=== PATIENT | male | born 1990 | race Caucasian/White ===

== ENCOUNTER 2017-07-13 09:59 | Outpatient (CLI) | payer OTHER | END 2017-07-13 10:00 | disposition home or self-care (01) | LOC: SC 09:59 | PROVIDERS: ATTEND Internal Medicine Pulmonary Disease | DX: G47.30 Sleep apnea, unspecified (principal); G47.10 Hypersomnia, unspecified; R06.83 Snoring; G47.8 Other sleep disorders | CPT/HCPCS: 99203; 99212 ==

== ENCOUNTER 2017-09-15 19:12 | Outpatient (CLI) | payer OTHER | END 2017-09-15 19:13 | disposition home or self-care (01) | LOC: SC 19:12 | PROVIDERS: ATTEND Internal Medicine Pulmonary Disease | DX: G47.33 Obstructive sleep apnea (adult) (pediatric) (principal) | CPT/HCPCS: 95810 ==

== ENCOUNTER 2017-10-21 09:09 | Outpatient (CLI) | payer OTHER | END 2017-10-21 09:10 | disposition home or self-care (01) | LOC: SC 09:09 | PROVIDERS: ATTEND Nurse Practitioner Family | DX: G47.33 Obstructive sleep apnea (adult) (pediatric) (principal) | CPT/HCPCS: 99212; 99214 ==

== ENCOUNTER 2018-07-11 21:14 | Emergency (ER) | payer OTHER ==
[2018-07-11 21:35] LABS: BILIRUBIN,URINE NEGATIVE (NEGATIVE); GLUCOSE, URINE (UA) NEGATIVE (NEGATIVE); KETONES,URINE (UA) NEGATIVE (NEGATIVE); LEUKOCYTE ESTERASE, URINE NEGATIVE (NEGATIVE); NITRITE,URINE NEGATIVE (NEGATIVE); OCCULT BLOOD,URINE NEGATIVE (NEGATIVE); PH,URINE 6.5 PH (5.0-7.5); PROTEIN,URINE NEGATIVE (NEGATIVE); UROBILINOGEN,URINE 1 (NORMAL) E.U./dL (NORMAL)
[2018-07-11 21:37] LABS: CLARITY,URINE CLEAR (CLEAR)
--- NOTE | 2018-07-11 22:03 | ED Physician Documentation ---
PD HPI MALE - Stated complaint Stated Complaint: MALE - Chief complaint Chief Complaint: Abd Pain - History obtained from History obtained from: Patient - History of Present Illness Timing - onset: Yesterday Timing - details: Gradual onset, Still present Associated symptoms: Testiclar pain PD HPI MALE CONTRIB FACTORS: Sexually active (monogamous.) Similar symptoms before: Has not had sx before - Additional information Additional information: The patient is a 28-year-old male who presents with left testicular pain that started yesterday. He describes it as an aching pain. Today he noticed swelling of the left testicle. The pain is worse with standing or walking, or with lifting. It is better when lying supine. He denies history of similar symptoms in the past. He denies fever, dysuria, nausea or vomiting, or penile discharge. He is , and monogamous. Review of Systems Constitutional: denies: Fever Nose: denies: Congestion Throat: denies: Sore throat Cardiac: denies: Chest pain / pressure Respiratory: denies: Dyspnea, Cough GI: denies: Abdominal Pain, Nausea, Vomiting : reports: Testicular pain. denies: Dysuria, Discharge Skin: denies: Rash Musculoskeletal: denies: Back pain Neurologic: denies: Headache PD PAST MEDICAL HISTORY - Past Medical History Past Medical History: No Endocrine/Autoimmune: None - Past Surgical History Past Surgical History: No - Present Medications Home Medications: Ambulatory Orders Medication Instructions Recorded Confirmed Levofloxacin [Levaquin] 500 mg PO DAILY #7 tablet 07/12/18 - Allergies Allergies/Adverse Reactions: Allergies Allergy/AdvReac Type Severity Reaction Status Date / Time No Known Drug Allergies Allergy Verified 07/11/18 21:21 - Social History Does the pt smoke?: No Smoking Status: Former smoker Does the pt drink ETOH?: Yes Does the pt have substance abuse?: No - Immunizations Immunizations are current?: Yes - POLST Patient has POLST: No PD ED PE NORMAL - Vitals Vital signs reviewed: Yes (Initially hypertensive.) - General General: Alert and oriented X 3, Well developed/nourished - HEENT HEENT: Atraumatic, Moist mucous membranes - Cardiac Cardiac: RRR - Respiratory Respiratory: No respiratory distress - Abdomen Abdomen: Soft, Non tender, No organomegaly - Male Male : Other (There is tenderness to palpation of the left testicle, particularly over the epididymis. There is no appreciable scrotal swelling, and no hernia defect palpated. Penile shaft is unremarkable.) - Back Back: No CVA TTP - Derm Derm: No rash - Extremities Extremities: No edema - Neuro Neuro: Alert and oriented X 3, Normal speech Results - Vitals Vitals: Vital Signs - 24 hr 07/11/18 07/12/18 21:18 00:34 Temperature 37.2 C Heart Rate 114 H 72 Respiratory 16 16 Rate Blood Pressure 149/94 H 118/59 L O2 Saturation 100 98 Oxygen O2 Source Room air - Labs Labs: Laboratory Tests 07/11/18 21:31 Urine Color YELLOW Urine Clarity CLEAR Urine pH 6.5 Ur Specific [place] 1.025 Urine Protein NEGATIVE Urine Glucose (UA) NEGATIVE Urine Ketones NEGATIVE Urine Occult Blood NEGATIVE Urine Nitrite NEGATIVE Urine Bilirubin NEGATIVE Urine Urobilinogen 1 (NORMAL) Ur Leukocyte Esterase NEGATIVE Ur Microscopic Review NOT INDICATED Urine Culture Comments NOT INDICATED - Rads (name of study) Testicular U/S Radiology: Prelim report reviewed, EMP read contemporaneously, See rad report (1) Heterogeneous hypervascular left testis possibly representing orchitis. Clinical and sonographic follow-up recommended to show resolution and rule out malignancy. 2) Small left hydrocele and small left varicocele. 3) Some tiny echogenic foci are seen in both testes possibly representing microliths.) PD MEDICAL DECISION MAKING - ED course Complexity details: reviewed results, re-evaluated patient, considered differential, d/w patient ED course: The patient's presentation is most consistent with left epididymal orchitis. Ultrasound of the left testicle and scrotum reveals no evidence of testicular torsion. Treatment in the emergency department included administration of levofloxacin 500 mg orally and ibuprofen 800 mg orally. He is being discharged with prescription for levofloxacin. I discussed with him the expected course of illness, antibiotic treatment and outpatient follow-up, as well as potentially worrisome signs or symptoms that should prompt reevaluation in the emergency department. Departure - Departure Disposition: 01 Home, Self Care Clinical Impression: Orchitis and epididymitis Condition: Stable Instructions: ED Orchitis Follow-Up: SHRUTHI Lund [Provider Group] Prescriptions: Levofloxacin [Levaquin] 500 mg PO DAILY #7 tablet Comments: Take Levaquin daily as prescribed. You can use ibuprofen, up to 800 mg 3 times daily for its anti-inflammatory effect. Follow-up with your primary physician within 1 week. Call to schedule appointment. Return to the emergency department if you develop increasing testicular or scrotal swelling or pain, or otherwise worsening symptoms. Forms: Activity restrictions Discharge Date/Time: 07/12/18 00:35
[2018-07-11] MEDS ORDERED: IBUPROFEN 800 MG TABLET PO STA (23:08)
--- NOTE | 2018-07-11 23:27 | Ultrasound Report ---
Reason: left testicular pain and swelling. Procedure Date: 07/11/2018 Accession Number: [id number] / [id number] Procedure: US - Testicle w/Doppler Limited CPT Code: FULL RESULT: EXAM: SCROTAL ULTRASOUND EXAM DATE: 07/11/2018 11:12 PM. CLINICAL HISTORY: Left testicular pain and swelling. COMPARISON: None. TECHNIQUE: Real-time scanning was performed with static images obtained. Color-flow images were utilized. FINDINGS: Right: Testis: 3.7 x 2.4 x 1.8 cm. Several small echogenic foci possibly representing microliths. Echo texture is otherwise normal. No mass or abnormal blood flow seen. Epididymis: 0.9 x 0.6 x 1.0 cm. Small cysts measuring up to 2 x 2 x 1 mm. Otherwise unremarkable. Hydrocele: None. Varicocele: None. Left: Testis: 3.7 x 2.7 x 2.0 cm. Heterogeneous echotexture with increased vascularity. A few tiny echogenic foci are seen possibly representing microliths. Epididymis: 0.9 x 0.7 x 0.9 cm. Normal size and echotexture. No mass or abnormal blood flow. Hydrocele: Small amount. Varicocele: Small. IMPRESSION: 1. Heterogeneous hypervascular left testis possibly representing orchitis. Clinical and sonographic follow-up recommended to show resolution and rule out malignancy. 2. Small left hydrocele and small left varicocele. 3. Some tiny echogenic foci are seen in both testes possibly representing microliths. RADIA
[2018-07-12] MEDS ORDERED: levoFLOXacin 250 MG TABLET PO STA (00:10)
[2018-07-12 00:35] VITALS: BP 118/59
== END 2018-07-12 00:35 | disposition home or self-care (01) ==
LOC: ED 21:14
DX: N45.2 Orchitis (principal); N45.1 Epididymitis; Z87.891 Personal history of nicotine dependence
CPT/HCPCS: 76870; 81003; 93976; 99283; A9270; 81001; 87086

== ENCOUNTER 2018-07-21 08:45 | Outpatient (CLI) | payer OTHER | END 2018-07-21 08:46 | disposition home or self-care (01) | LOC: SC 08:45 | PROVIDERS: ATTEND Nurse Practitioner Family | DX: G47.33 Obstructive sleep apnea (adult) (pediatric) (principal) | CPT/HCPCS: 99212; 99214 ==

== ENCOUNTER 2018-08-12 14:26 | Outpatient (CLI) | payer OTHER | END 2018-08-12 14:27 | disposition home or self-care (01) | LOC: SC 14:26 | PROVIDERS: ATTEND Nurse Practitioner Family | DX: G47.33 Obstructive sleep apnea (adult) (pediatric) (principal) | CPT/HCPCS: 99212; 99214 ==

== ENCOUNTER 2018-12-20 13:05 | Emergency (ER) | payer OTHER ==
[2018-12-20 14:11] LABS: BASOPHILS % (AUTO) 0.2 %; EOSINOPHILS % (AUTO) 0.2 %; LYMPHOCYTES # (AUTO) 0.5 10^3/uL (1.5-3.5); LYMPHOCYTES % (AUTO) 3.9 %; MEAN CORPUSCULAR HEMOGLOBIN 30.9 pg (27.0-31.0); MEAN CORPUSCULAR HGB CONC 34.7 g/dL (32.0-36.0); MEAN PLATELET VOLUME 9.1 fL (7.4-11.4); MONOCYTES # (AUTO) 0.6 10^3/uL (0.0-1.0); MONOCYTES % (AUTO) 4.8 %; NEUTROPHILS # (AUTO) 10.8 10^3/uL (1.5-6.6); NEUTROPHILS % (AUTO) 90.9 %; PLT - PLATELET COUNT 171 10^3/uL (130-450); RED BLOOD COUNT 5.51 10^6/uL (4.70-6.10); RED CELL DISTRIBUTION WIDTH 12.8 % (12.0-15.0); WHITE BLOOD COUNT 11.9 x10^3/uL (4.8-10.8)
[2018-12-20] MEDS ORDERED: HYDROmorphone 1 MG/ML CARPUJECT IVP STA ×2 (14:16→16:18)
[2018-12-20] MEDS ORDERED: SODIUM CHLORIDE 0.9% 1,000 ML IV ONE (14:16)
[2018-12-20] MEDS ORDERED: ONDANSETRON 4 MG/2 ML VIAL IVP STA (14:16)
--- NOTE | 2018-12-20 14:16 | ED Physician Documentation ---
PD HPI ABD PAIN - Stated complaint Stated Complaint: ABD PX/VOMITING - Chief complaint Chief Complaint: Abd Pain - History obtained from History obtained from: Patient - History of Present Illness Timing - onset: Today (He was not feeling great last night but nothing specific. This morning he has had vomiting and diarrhea and severe diffuse abdominal pain. No H/O abd Surgeries. He also feels sore all over.) Review of Systems Ten Systems: 10 systems reviewed and negative Constitutional: reports: Myalgias. denies: Fever, Chills Nose: denies: Rhinorrhea / runny nose, Congestion Cardiac: denies: Chest pain / pressure, Palpitations Respiratory: denies: Dyspnea, Cough PD PAST MEDICAL HISTORY - Past Medical History Endocrine/Autoimmune: None - Past Surgical History Past Surgical History: No - Present Medications Home Medications: Ambulatory Orders Medication Instructions Recorded Confirmed Hydrocodone/Acetaminophen 1 - 2 each PO Q6H PRN #10 tablet 12/20/18 [Hydrocodon-Acetaminophen 5-325] Ondansetron Odt [Zofran] 4 mg TL Q6H PRN #10 tablet 12/20/18 - Allergies Allergies/Adverse Reactions: Allergies Allergy/AdvReac Type Severity Reaction Status Date / Time No Known Drug Allergies Allergy Verified 12/20/18 13:27 - Social History Does the pt smoke?: No Smoking Status: Former smoker Does the pt drink ETOH?: Yes Does the pt have substance abuse?: No - Immunizations Immunizations are current?: Yes - POLST Patient has POLST: No PD ED PE NORMAL - Vitals Vital signs reviewed: Yes (tachycardic) - General General: No acute distress, Well developed/nourished - HEENT HEENT: PERRL, EOMI, Pharynx benign - Neck Neck: Supple, no meningeal sign, No bony TTP - Cardiac Cardiac: RRR, No murmur - Respiratory Respiratory: No respiratory distress, Clear bilaterally - Abdomen Abdomen: Other (Diminished bowel sounds, not absent. No abdominal tenderness, but mild rebound tenderness. He actually says palpation feels good and relieves the pain.) - Back Back: No CVA TTP, No spinal TTP - Derm Derm: Normal color, Warm and dry - Extremities Extremities: No edema, No calf tenderness / cord - Neuro Neuro: Alert and oriented X 3, Normal speech Results - Vitals Vitals: Vital Signs - 24 hr 12/20/18 12/20/18 12/20/18 13:26 14:25 15:15 Temperature 37.7 C H 38 C H 37.4 C Heart Rate 112 H 85 Respiratory 22 18 Rate Blood Pressure 125/88 H 128/88 H O2 Saturation 96 99 12/20/18 16:14 Temperature Heart Rate 101 H Respiratory 18 Rate Blood Pressure 101/79 O2 Saturation 98 Oxygen O2 Source Room air - Labs Labs: Laboratory Tests 12/20/18 12/20/18 12/20/18 14:03 14:03 15:15 WBC 11.9 H RBC 5.51 Hgb 17.0 Hct 49.1 MCV 89.0 MCH 30.9 MCHC 34.7 RDW 12.8 Plt Count 171 MPV 9.1 Neut # (Auto) 10.8 H Lymph # (Auto) 0.5 L [place] # (Auto) 0.6 Eos # (Auto) 0.0 Baso # (Auto) 0.0 Absolute Nucleated RBC 0.01 Nucleated RBC % 0.1 Sodium 138 Potassium 3.8 Chloride 104 Carbon Dioxide 24 Anion Gap 10.0 BUN 20 Creatinine 1.2 Estimated GFR (MDRD) 72 L Glucose 103 H Calcium 9.6 Total Bilirubin 1.3 H AST 30 ALT 45 Alkaline Phosphatase 36 L Total Protein 8.5 H Albumin 4.9 Globulin 3.6 Albumin/Globulin Ratio 1.4 Lipase 24 Urine Color YELLOW Urine Clarity CLEAR Urine pH 7.5 Ur Specific [place] 1.015 Urine Protein TRACE Urine Glucose (UA) NEGATIVE Urine Ketones TRACE Urine Occult Blood NEGATIVE Urine Nitrite NEGATIVE Urine Bilirubin NEGATIVE Urine Urobilinogen 0.2 (NORMAL) Ur Leukocyte Esterase NEGATIVE Ur Microscopic Review NOT INDICATED Urine Culture Comments NOT INDICATED PD MEDICAL DECISION MAKING - ED course ED course: 28-year-old gentleman with a syndrome most consistent with gastroenteritis but the pain seems pretty prominent and given the elevated white count a CT was done to rule out appendicitis which was negative for same. He was feeling much better after medications and passed an oral challenge here. Departure - Departure Disposition: 01 Home, Self Care Clinical Impression: Vomiting, Abdominal pain, Diarrhea Condition: Good Record reviewed to determine appropriate education?: Yes Instructions: ED Nausea Vomiting Prescriptions: Hydrocodone/Acetaminophen [Hydrocodon-Acetaminophen 5-325] 1 - 2 each PO Q6H PRN #10 tablet PRN Reason: pain Ondansetron Odt [Zofran] 4 mg TL Q6H PRN #10 tablet PRN Reason: Nausea / Vomiting Comments: Generally illnesses like this are very short-lived. If you are still sick in the morning please return for reevaluation, anytime if worse or if new symptoms develop. Forms: Activity restrictions Discharge Date/Time: 12/20/18 16:33
[2018-12-20 14:26] LABS: ALBUMIN 4.9 g/dL (3.2-5.5); ALBUMIN/GLOBULIN RATIO 1.4 (1.0-2.2); BILIRUBIN,TOTAL 1.3 mg/dL (0.2-1.0); CALCIUM 9.6 mg/dL (8.5-10.3); CREATININE 1.2 mg/dL (0.6-1.2); TOTAL PROTEIN 8.5 g/dL (6.7-8.2)
[2018-12-20] MEDS ORDERED: IOVERSOL 320 100 ML VIAL IVP ONE ×2 (15:13→16:12)
[2018-12-20 15:26] LABS: BILIRUBIN,URINE NEGATIVE (NEGATIVE); GLUCOSE, URINE (UA) NEGATIVE (NEGATIVE); KETONES,URINE (UA) TRACE mg/dL (NEGATIVE); LEUKOCYTE ESTERASE, URINE NEGATIVE (NEGATIVE); NITRITE,URINE NEGATIVE (NEGATIVE); OCCULT BLOOD,URINE NEGATIVE (NEGATIVE); PH,URINE 7.5 PH (5.0-7.5); PROTEIN,URINE TRACE mg/dL (NEGATIVE); UROBILINOGEN,URINE 0.2 (NORMAL) E.U./dL (NORMAL)
[2018-12-20 15:28] LABS: CLARITY,URINE CLEAR (CLEAR)
--- NOTE | 2018-12-20 15:53 | CT Report ---
Reason: IV only, abd pain Procedure Date: 12/20/2018 Accession Number: [id number] / [id number] Procedure: CT - Abdomen/Pelvis W CPT Code: FULL RESULT: EXAM: CT ABDOMEN AND PELVIS EXAM DATE: 12/20/2018 03:40 PM. CLINICAL HISTORY: Abdominal pain. COMPARISONS: None. TECHNIQUE: Routine helical CT imaging was performed through the abdomen and pelvis. IV contrast: OPTI 320 100mL. Enteric contrast: No. Reconstructions: Coronal and sagittal. In accordance with CT protocol optimization, one or more of the following dose reduction techniques were utilized for this exam: automated exposure control, adjustment of mA and/or KV based on patient size, or use of iterative reconstructive technique. FINDINGS: Lung Bases: Unremarkable. Liver: Normal. No masses. Gallbladder/Bile Ducts: Unremarkable. Spleen: Normal. Pancreas: Normal. Adrenal Glands: Normal. Kidneys: Normal. No masses or hydronephrosis. Peritoneal Cavity/Bowel: Colon is fluid-filled compatible with diarrhea. No free fluid, free air or adenopathy. No masses or acute inflammatory process. The appendix is well visualized and normal. Pelvic Organs: Normal. The bladder and visualized pelvic organs are within normal limits. Vasculature: No aneurysms or other significant abnormality. Bones: No significant abnormality. Other: None. IMPRESSION: Fluid-filled colon, suspect diarrhea. RADIA
[2018-12-20 16:15] VITALS: BP 101/79
[2018-12-20] MEDS ORDERED: KETOROLAC 30 MG/ML VIAL IVP STA (16:18)
== END 2018-12-20 16:33 | disposition home or self-care (01) ==
LOC: ED 13:05
DX: R11.10 Vomiting, unspecified (principal); R10.9 Unspecified abdominal pain; R19.7 Diarrhea, unspecified; Z87.891 Personal history of nicotine dependence
CPT/HCPCS: 36415; 74177; 80053; 81003; 83690; 85025; 96361; 96374; 96376; 99283; J1170; Q9967; 81001; 87086

== ENCOUNTER 2021-03-20 17:56 | Emergency (ER) | payer OTHER ==
[2021-03-20 18:09] VITALS: BP 126/74
--- NOTE | 2021-03-20 18:43 | ED Physician Documentation ---
PD HPI LOWER EXT INJURY - Stated complaint Stated Complaint: RIGHT LEG INJURY - Chief complaint Chief Complaint: Trauma Ext - History obtained from History obtained from: Patient - History of Present Illness PD HPI LOW EXT INJURY LOCATION: Right, Thigh Type of injury: No: Fall (he was playing baseball and started a run from third base to home and with the jumpoff of the run, he felt a pop and pain right posterior thigh, and pain with walking. 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) Timing - details: Abrupt onset, Still present Worsened by: Moving Associated symptoms: No: Weakness, Numbness Review of Systems Skin: denies: Abrasion (s), Laceration (s) Neurologic: denies: Focal weakness, Numbness PD PAST MEDICAL HISTORY - Past Medical History Cardiovascular: None Respiratory: None Neuro: None Endocrine/Autoimmune: None GI: None : None HEENT: None Psych: None Musculoskeletal: None Derm: None - Past Surgical History Past Surgical History: No - Present Medications Home Medications: Ambulatory Orders Medication Instructions Recorded Confirmed Ibuprofen [Motrin] 600 mg PO TID PRN #25 tab 03/20/21 hydrOXYzine HCL [Hydroxyzine HCl] 25 mg PO QID PRN 03/20/21 03/20/21 tiZANidine [Zanaflex] 4 mg PO Q8H PRN #25 tablet 03/20/21 - Allergies Allergies/Adverse Reactions: Allergies Allergy/AdvReac Type Severity Reaction Status Date / Time No Known Drug Allergies Allergy Verified 03/20/21 18:05 - Social History Does the pt smoke?: No Smoking Status: Former smoker Does the pt drink ETOH?: Yes Does the pt have substance abuse?: No - Immunizations Immunizations are current?: Yes - POLST Patient has POLST: No PD ED PE NORMAL - Vitals Vital signs reviewed: Yes - General General: Alert and oriented X 3, Well developed/nourished, Other (seems in pain with movement of the knee, flexion causing spasm of posterior thigh.) - Derm Derm: Normal color, Warm and dry - Extremities Extremities: Other (right knee without tenderness. lateral hamstring tendon feels soft but is still intact with passive leg extension. mid hamstring with tenderness markedly.) - Neuro Neuro: Alert and oriented X 3, No motor deficit, Normal speech Results - Vitals Vitals: Vital Signs - 24 hr 03/20/21 18:06 Temperature 37.3 C Heart Rate 88 Respiratory 16 Rate Blood Pressure 126/74 O2 Saturation 98 Oxygen O2 Source Room air - Rads (name of study) right hip Radiology: Prelim report reviewed (no fractures), See rad report PD MEDICAL DECISION MAKING - ED course Complexity details: considered differential (clinically feels like mid hamgstring muscle tear and not distal tendon. ), d/w patient Departure - Departure Disposition: 01 Home, Self Care Clinical Impression: Tear of right hamstring Condition: Stable Record reviewed to determine appropriate education?: Yes Instructions: ED Strain Muscle Ext Follow-Up: SHRUTHI Lund [Provider Group] Prescriptions: Ibuprofen [Motrin] 600 mg PO TID PRN #25 tab PRN Reason: Pain tiZANidine [Zanaflex] 4 mg PO Q8H PRN #25 tablet PRN Reason: Spasms Comments: YourThis does seem like a tear of the lateral hamstring but seems more in the mid muscle belly and not the tendon attachment itself. This would tend to heal better with conservative treatment of a knee brace and crutches and limited use. Ibuprofen 600 mg 3 times a day with food. To that add Tylenol every 4 hours if needed for pain. Tizanidine muscle relaxant for spasms. Heat and stretching for the area to reduce spasming as well. Follow-up with your primary care early next week for recheck, call for an a ppointment. Use the knee brace in a slightly flexed position to reduce tension on the muscle and tendon. Crutches for nonweightbearing. Continue in this fashion until follow-up. Discharge Date/Time: 03/20/21 20:10
[2021-03-20] MEDS ORDERED: HYDROcod/ACETAM 5/325 MG TABLET PO STA (18:54)
[2021-03-20] MEDS ORDERED: IBUPROFEN 600 MG TABLET PO STA (18:54)
[2021-03-20] MEDS ORDERED: methocarbamoL 500 MG TABLET PO STA (18:54)
--- NOTE | 2021-03-20 19:06 | XRAY Report ---
PROCEDURE: Hip w/Pelvis 2-3V RT INDICATIONS: hamstring injury TECHNIQUE: AP pelvis with lateral view(s) of the right hip(s). COMPARISON: None. FINDINGS: Bones: No fractures or dislocations. Specifically, no visible avulsion fracture at the hamstring or igin site. Pelvic ring appears intact. No suspicious bony lesions. Benign-appearing bone island lef t posterior ilium. Soft tissues: The visualized bowel gas pattern is normal. No suspicious soft tissue calcifications. IMPRESSION: No visible fractures. Reviewed by: Laila Wells MD on 03/20/2021 7:04 PM PDT Approved by: Laila Wells MD on 03/20/2021 7:04 PM PDT Station ID: [id number]
== END 2021-03-20 20:10 | disposition home or self-care (01) ==
LOC: ED 17:56
DX: S76.811A Strain of other specified muscles, fascia and tendons at thigh level, right thigh, initial encounter (principal); X50.9XXA Other and unspecified overexertion or strenuous movements or postures, initial encounter; Y93.64 Activity, baseball; Y92.320 Baseball field as the place of occurrence of the external cause; Z87.891 Personal history of nicotine dependence
CPT/HCPCS: 73502; 99282; 99283; A9270

== ENCOUNTER 2021-07-27 17:31 | Outpatient (CLI) | payer OTHER | END 2021-07-27 17:32 | disposition critical access hospital (66) | LOC: EMS 17:31 | DX: F41.9 Anxiety disorder, unspecified (principal) | CPT/HCPCS: A0425; A0429 ==

== ENCOUNTER 2021-07-27 17:34 | Emergency (ER) | payer OTHER ==
[2021-07-27] MEDS ORDERED: LORazepam 2 MG/ML VIAL IVP STA (17:39)
--- NOTE | 2021-07-27 17:40 | ED Physician Documentation ---
PD HPI DYSPNEA - Stated complaint Stated Complaint: ANXIETY ATTACK - History obtained from History obtained from: Patient, EMS - Additional information Additional information: 31-year-old gentleman with history of anxiety was in his usual state of health when he developed an anxiety attack. Feels like his throat is closing and is having an awful time breathing. No associated rash. He feels tingly all over especially arms and legs and around the mouth. No unilateral symptoms. He took a hydroxyzine at home prior to arrival which was not helpful. Review of Systems Constitutional: reports: Reviewed and negative Eyes: reports: Reviewed and negative Cardiac: reports: Reviewed and negative Respiratory: reports: Reviewed and negative PD PAST MEDICAL HISTORY - Past Medical History Cardiovascular: None Respiratory: None Neuro: None Endocrine/Autoimmune: None GI: None : None HEENT: None Psych: None Musculoskeletal: None Derm: None - Past Surgical History Past Surgical History: No - Present Medications Home Medications: Ambulatory Orders Medication Instructions Recorded Confirmed Ibuprofen [Motrin] 600 mg PO TID PRN #25 tab 03/20/21 hydrOXYzine HCL [Hydroxyzine HCl] 25 mg PO QID PRN 03/20/21 03/20/21 tiZANidine [Zanaflex] 4 mg PO Q8H PRN #25 tablet 03/20/21 LORazepam [Ativan] 1 mg PO TID PRN #12 tablet 07/27/21 - Allergies Allergies/Adverse Reactions: Allergies Allergy/AdvReac Type Severity Reaction Status Date / Time No Known Drug Allergies Allergy Verified 07/27/21 17:39 - Social History Does the pt smoke?: No Smoking Status: Former smoker Does the pt drink ETOH?: Yes Does the pt have substance abuse?: No - Immunizations Immunizations are current?: Yes - POLST Patient has POLST: No PD ED PE NORMAL - Vitals Vital signs reviewed: Yes - General General: Alert and oriented X 3, Other (He appears quite anxious and shaky.) - HEENT HEENT: PERRL, EOMI, Pharynx benign - Neck Neck: Supple, no meningeal sign, No bony TTP - Cardiac Cardiac: RRR, No murmur - Respiratory Respiratory: Other (Hyperventilating but clear lungs) - Abdomen Abdomen: Non tender - Extremities Extremities: No edema, No calf tenderness / cord - Neuro Neuro: Alert and oriented X 3, Normal speech Results - Vitals Vitals: Vital Signs - 24 hr 07/27/21 07/27/21 17:39 17:42 Temperature 36.9 C Heart Rate 85 64 Respiratory 18 Rate Blood Pressure 150/83 H 150/83 H O2 Saturation 100 97 Oxygen O2 Source Room air PD MEDICAL DECISION MAKING - ED course ED course: 31-year-old gentleman presents in the midst of a panic attack. After 2 mg of Ativan he is comfortable in all but symptom-free. Departure - Departure Disposition: 01 Home, Self Care Clinical Impression: Panic attack Condition: Good Record reviewed to determine appropriate education?: Yes Instructions: ED Panic Attack Prescriptions: LORazepam [Ativan] 1 mg PO TID PRN #12 tablet PRN Reason: Anxiety Comments: Prescription sent electronically to [facility] [place] Follow-up with your doctor for consideration of medical management. Return for new or worsening symptoms. We talked a bit today about medications, Wellbutrin might be a decent option to discuss with your doctor. Do not drink or drive while taking lorazepam.
[2021-07-27 17:42] VITALS: BP 150/83
== END 2021-07-27 19:11 | disposition home or self-care (01) ==
LOC: EDUNIT# → ED 17:34
DX: F41.0 Panic disorder [episodic paroxysmal anxiety] (principal); Z87.891 Personal history of nicotine dependence
CPT/HCPCS: 96374; 99283; J2060

== ENCOUNTER 2021-11-13 10:29 | Outpatient (CLI) | payer OTHER ==
--- NOTE | 2021-11-13 22:49 | XRAY Report ---
PROCEDURE: Shoulder 3 View RT INDICATIONS: STRAIN OF MUSCLE, FASCIA, AND TENDON OF R SHOULDER TECHNIQUE: 3 views of the shoulder were acquired. COMPARISON: None. FINDINGS: Bones: No fractures or dislocations. No suspicious bony lesions. Visualized ribs appear intact. M ild narrowing at the acromioclavicular joint space. Soft tissues: No suspicious soft tissue calcifications. IMPRESSION: No visualized acute fracture or dislocation. However, occult injury cannot be excluded. Recommend short interval imaging follow-up in 7-10 days as clinically indicated for additional evalua tion. Reviewed by: Chitra Gomez MD on 11/13/2021 10:48 PM PDT Approved by: Chitra Gomez MD on 11/13/2021 10:48 PM PDT Station ID: [id number]
== END 2021-11-13 23:59 | disposition home or self-care (01) ==
LOC: DI.N 10:29
PROVIDERS: ATTEND Nurse Practitioner
DX: S46.911A Strain of unspecified muscle, fascia and tendon at shoulder and upper arm level, right arm, initial encounter (principal)